=== PATIENT | female | born 1995 | race Caucasian/White ===

== ENCOUNTER → 2024-09-18 09:36 | Outpatient (BNVA) | payer OTHER, SELFPAY | PROVIDERS: PCP Family Medicine; Visit Provider Nurse Practitioner Family ==

== ENCOUNTER 2025-03-08 07:55 | Outpatient (AMB) | payer OTHER, SELFPAY ==
[2025-03-08 07:58] VITALS: BP 158/96; PULSE 88; O2SAT 98; BMI 34.4
--- NOTE | 2025-03-08 07:58 | MHC.OFFVIS ---
Vital Signs 03/08/25 07:58 Height 5 ft 9 in Weight 233 lb 0.458 oz BMI 34.4 BP 158/96 H Blood Pressure Location Lt brachial Position Sitting Pulse 88 Pulse Source Pulse Oximeter Pulse Oximetry (%) 98 Oxygen Delivery Method Room Air Intake Visit Reasons: DM Intake Note: Patient present today for Type 2 Diabetes Mellitus Last Diabetic eye exam: 04/2025 Last Podiatry Visit: Doesn't have one Random Glucose: 204 mg/dl HgA1C: 10.0% Distance Education Coordinator Required: No Accompanied by: Self / Same As Patient Allergies pine Allergy (Mild, Uncoded 03/08/25 08:03) Itching Medication List - Last Reconciled 03/08/25 by Rena Green PA-C blood sugar diagnostic ([employer] Ultra Test strips) To Test Blood Sugar 2 times a day, As directed, 90 days blood-glucose meter ([employer] Ultra2 Meter) To test Blood sugar As directed, 999 days blood-glucose sensor (Cardiovascular Simulation G7 Sensor device) use daily As directed to monitor blood glucose cetirizine 10 mg PO DAILY 30 days cholecalciferol (vitamin D3) 50 mcg PO DAILY fenofibrate 160 mg PO DAILY 90 days fluticasone propionate 50 mcg/actuation (Flonase Allergy Relief) 2 sprays intranasal DAILY glipizide ER 2.5 mg PO DAILY 30 days insulin glargine (Lantus Solostar U-100 Insulin) 14 units (0.14 mL) subcut DAILY 30 days inulin (Fiber Gummies) grams PO lancets (MobileVedaTouch Delica Plus Lancet) To Test Blood Sugar 2 times a day, As directed. 90 days metformin 500 mg PO BIDWMEAL 90 days pen needle, diabetic (BD Luz 2nd Gen Pen Needle) Treat blood sugar once a day As directed, 90 days PNV,calcium 03-[id number]-[id number] acid 27 mg iron- 1 mg ( Vitamins Plus Low Iron) 1 tab PO DAILY HPI HPI DM: Details: Patient is a 30-year-old female who presents today for a consultation regarding diabetes. Endo: DM- She states that she was just recently diagnosed (2023) with an A1c of 11.5. Today her A1c is 10. She currently on metformin 500 mg twice a day, Lantus 14 units daily, glipizide 2.5 mg daily. CGM-declines, does not like them Hypoglycemia: Rare hypergylcemia: Denies any symptoms with hyperglycemia Fam hx of type 2 dm- everyone on mothers side and some on fathers. CV: Blood pressure today in the office is 136/86. She is not on any antihypertensives. Her triglycerides are elevated and she is on fenofibrate. 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 [facility] Medical History (Updated 12/11/24 @ 14:19 by Sonali Spaulding) Anxiety Swelling, lymph nodes Insect bite of right upper arm with infection Surgical History [place] teeth extracted Hx of tonsillectomy Family History Mother Diabetes Hypothyroid Father Asthma High blood pressure Cardiovascular disease Maternal Grandmother Diabetes Paternal Grandmother High blood pressure Breast cancer Brother High blood pressure Social History Household Members: Spouse Both parents involved: Yes Caregiver staying overnight: No Housing: Apartment Are you a primary acute care certified nursing assistant to a significant other at home: No Do you presently have visiting nurse or other home services: No 75 years or older and lives alone: No Alcohol intake: current Alcohol intake frequency: holidays/special occasions only Comment: on occasion Patient Tobacco Use Status: Never used Tobacco e-Cigarette/Vaping Use: Never Used service: No Current occupational status: employed 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 Cognitive needs: No Hearing needs: No Vision needs: Yes (Patient wears glasses.) Female Reproductive History Menstrual Age of Menarche: 13 Physical Exam Vital Signs: Last Vital Signs Pulse 88 03/08/25 07:58 BP 158/96 H 03/08/25 07:58 Pulse Ox 98 03/08/25 07:58 Oxygen Delivery Method Room Air 03/08/25 07:58 BMI result Body Mass Index 34.4 Const Orientation/consciousness: patient oriented x3 HEENT Ears: hearing grossly normal bilaterally Neck Thyroid: Thyroid normal Lymphatic: no lymphadenopathy noted Resp Auscultation: clear to auscultation bilaterally Cardio Rate: regular rate Rhythm: regular rhythm Heart sounds: S1 normal heart sound present and S2 normal heart sound present Skin General skin exam: no rashes or lesions noted Neuro General: patient oriented x3, gait normal and no focal motor deficits Results AMB Hemoglobin A1c AMB Hemoglobin A1c 10.0 % Last Edit by TAVIA Son on 03/08/25 08:21 Results Reviewed Results Reviewed: Laboratory Last Values Glucose (Clinic) 204 mg/dL (60-115) H 03/08/25 08:06 Assessment & Plan Assessment & Plan (1) Uncontrolled diabetes mellitus with hyperglycemia, with long-term current use of insulin: Code(s): E11.65 - Type 2 diabetes mellitus with hyperglycemia; Z79.4 - [facility] (current) use of insulin Category: Medical Plan: Increase metformin to 1000 mg twice a day Continue glipizide 2.5 mg daily Continue Lantus 14 units daily Start Trulicity 0.75 mg weekly. Discussed risks and benefits and adverse effects of this medication including increased risk with nausea, vomiting, pancreatitis etc.. She is aware that she will have to adjust her diabetic drugs when they plan to start . She states that they will not consider it until her A1c is less than 7. (2) Microalbuminuric diabetic nephropathy: Code(s): E11.21 - Type 2 diabetes mellitus with diabetic nephropathy Category: Medical Plan: Urine ordered. We will check labs. (3) Hypertension: Code(s): I10 - Essential (primary) hypertension Category: Medical Plan: States blood pressures have been fine at home/IVF clinic We will recheck in a few weeks. 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 Panel Fast Today E11.21 - Type 2 diabetes mellitus with diabetic nephropathy, E11.65 - Type 2 diabetes mellitus with hyperglycemia, Z79.4 - [facility] (current) use of insulin Microalbumin, Random (w Creat) Today E11.21 - Type 2 diabetes mellitus with diabetic nephropathy, E11.65 - Type 2 diabetes mellitus with hyperglycemia, Z79.4 - [facility] (current) use of insulin Medications: New metformin 1,000 mg PO BID 180 tabs 1RF dulaglutide (Trulicity) 0.75 mg (0.5 mL) subcut QWEEK 2 mL 3RF Changed From glipizide ER 2.5 mg PO DAILY 30 days 30 tabs 2RF To glipizide ER 2.5 mg PO DAILY 90 days 90 tabs 2RF Discontinued metformin Discontinued Reason: Doctor's Order 500 mg PO BIDWMEAL 90 days 180 tabs 2RF Coding Level of Care Code Est Pt Level 4 (05761) Complex EM visit Add On G2211 Diagnoses Uncontrolled diabetes mellitus with hyperglycemia, with long-term current use of insulin E11.65; Z79.4 Microalbuminuric diabetic nephropathy E11.21 Hypertension I10
[2025-03-08 08:10] LABS: Glucose, Whole Blood 204 mg/dL (60-115)
== END 2025-03-08 08:28 | disposition home or self-care (01) ==
LOC: HO.ENCR 07:56
PROVIDERS: PCP Family Medicine; Visit Provider Physician Assistant
DX: E11.65 Type 2 diabetes mellitus with hyperglycemia (principal); Z79.4 Long term (current) use of insulin; E11.21 Type 2 diabetes mellitus with diabetic nephropathy; I10 Essential (primary) hypertension

== ENCOUNTER → 2025-03-08 07:55 | Outpatient (BNVA) | payer OTHER, SELFPAY | PROVIDERS: PCP Family Medicine; Visit Provider Physician Assistant | DX: E11.65 Type 2 diabetes mellitus with hyperglycemia (principal); E11.21 Type 2 diabetes mellitus with diabetic nephropathy; I10 Essential (primary) hypertension; Z79.4 Long term (current) use of insulin | CPT/HCPCS: 82947; 83036 ==

== ENCOUNTER → 2025-05-03 08:14 | Outpatient (BNVA) | payer OTHER, SELFPAY | PROVIDERS: PCP Family Medicine; Visit Provider Nurse Practitioner Family | DX: E11.65 Type 2 diabetes mellitus with hyperglycemia (principal); I10 Essential (primary) hypertension; E78.5 Hyperlipidemia, unspecified; Z79.4 Long term (current) use of insulin | CPT/HCPCS: 82947 ==

== ENCOUNTER 2025-05-03 08:27 | Outpatient (AMB) | payer OTHER, SELFPAY ==
[2025-05-03 08:29] VITALS: BP 158/90; PULSE 99; O2SAT 98; BMI 35.1
--- NOTE | 2025-05-03 08:29 | A.OFFVIS_ITS ---
Vital Signs 05/03/25 08:29 Height 5 ft 9 in Weight 237 lb 7.005 oz BMI 35.1 BP 158/90 H Blood Pressure Location Lt brachial Position Sitting Pulse 99 Pulse Source Pulse Oximeter Pulse Oximetry (%) 98 Oxygen Delivery Method Room Air Intake Visit Reasons: DM Intake Note: Patient present today for Type 2 Diabetes Mellitus Last Diabetic eye exam: Last exam was 05/2024 and has upcoming appt next month. Last Podiatry Visit: Doesn't have one Random Glucose: 228 mg/dl HgA1C: 10.0% 03/08/25 Child Health Associate Required: No Accompanied by: Self / Same As Patient Allergies pine Allergy (Mild, Uncoded 05/03/25 08:34) Itching Medication List - Last Reconciled 05/03/25 by Rena Green PA-C blood sugar diagnostic ([employer]uch Ultra Test strips) To Test Blood Sugar 2 times a day, As directed, 90 days blood-glucose meter (PixalateTouch Ultra2 Meter) To test Blood sugar As directed, 999 days blood-glucose sensor ([employer] G7 Sensor device) use daily As directed to monitor blood glucose cetirizine 10 mg PO DAILY 30 days cholecalciferol (vitamin D3) 50 mcg PO DAILY dulaglutide (Trulicity) 0.75 mg (0.5 mL) subcut QWEEK fenofibrate 160 mg PO DAILY 90 days fluticasone propionate 50 mcg/actuation (Flonase Allergy Relief) 2 sprays intranasal DAILY insulin glargine (Lantus Solostar U-100 Insulin) 14 units (0.14 mL) subcut DAILY 30 days inulin (Fiber Gummies) grams PO lancets (PixalateTouch Delica Plus Lancet) To Test Blood Sugar 2 times a day, As directed. 90 days metformin 1,000 mg PO BID pen needle, diabetic Treat blood sugar daily As directed, 90 days PNV,calcium 14-nzlo-[id number] acid 27 mg iron- 1 mg ( Vitamins Plus Low Iron) 1 tab PO DAILY HPI HPI DM: Details: Patient is a 30-year-old female who presents today for a consultation regarding diabetes. Endo: DM- She states that she was just recently diagnosed (2023) with an A1c of 11.5. Her last a1c was 10. She currently on metformin 1000 mg twice a day, Lantus 14 units daily, and Trulicity 0.75 mg weekly States her bs is elevated today because she had pizza last night. She states most mornings her blood sugars are now like 110-120 waking up. She states it used to be 180 in AMs. She denies any adverse effects with the medications. CGM-she states that she has had issues with the Dexcom reading her numbers and connecting so she just has not worn this. She says that she would like to wear and she is waiting for a replacement to come through the mail. Hypoglycemia: Rare hypergylcemia: Denies any symptoms with hyperglycemia Fam hx of type 2 dm- everyone on mothers side and some on fathers. CV: Blood pressure today in the office is 158/90. Blood pressures have been elevated. She is not on any antihypertensives. Her triglycerides are elevated and she is on fenofibrate. Establishment Guide: Currently trying to get but ivf clinic told her she has to have a1c less than 7 prior to starting. [facility], [facility] Medical History (Updated 05/03/25 @ 08:52 by Rena Green PA-C) Anxiety Swelling, lymph nodes Insect bite of right upper arm with infection Surgical History [place] teeth extracted Hx of tonsillectomy Family History Mother Diabetes Hypothyroid Father Asthma High blood pressure Cardiovascular disease Maternal Grandmother Diabetes Paternal Grandmother High blood pressure Breast cancer Brother High blood pressure Social History Household Members: Spouse Both parents involved: Yes Caregiver staying overnight: No Housing: Apartment Are you a primary progressive care unit registered nurse to a significant other at home: No Do you presently have visiting nurse or other home services: No 75 years or older and lives alone: No Alcohol intake: current Alcohol intake frequency: holidays/special occasions only Comment: on occasion Patient Tobacco Use Status: Never used Tobacco e-Cigarette/Vaping Use: Never Used service: No Current occupational status: employed 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 Cognitive needs: No Hearing needs: No Vision needs: Yes (Patient wears glasses.) Female Reproductive History Menstrual Age of Menarche: 13 Physical Exam Vital Signs: Last Vital Signs Pulse 99 05/03/25 08:29 BP 158/90 H 05/03/25 08:29 Pulse Ox 98 05/03/25 08:29 Oxygen Delivery Method Room Air 05/03/25 08:29 BMI result Body Mass Index 35.1 Const Orientation/consciousness: patient oriented x3 HEENT Ears: hearing grossly normal bilaterally Neck Thyroid: Thyroid normal Lymphatic: no lymphadenopathy noted Resp Auscultation: clear to auscultation bilaterally Cardio Rate: regular rate Rhythm: regular rhythm Heart sounds: S1 normal heart sound present and S2 normal heart sound present GI Inspection: Yes normal to inspection Palpation (GI): Soft to palpation and Other GI palpation findings present (nontender, no cva tenderness) Auscultation: normoactive bowel sounds Rectal Exam - Female: deferred Skin General skin exam: no rashes or lesions noted Neuro General: patient oriented x3, gait normal and no focal motor deficits Results Reviewed Results Reviewed: Laboratory Tests 07/03/24 03/08/25 Unknown 08:09 Creatinine 0.63 Estimated GFR > 60 Fasting Glucose 144 H Hgb A1c (Clinic) 10.0 H AST 18 ALT 31 Alkaline Phosphatase 56 Triglycerides 251 H Cholesterol 224 H LDL Cholesterol, Calc 141 H HDL Cholesterol 33 L Assessment & Plan Assessment & Plan (1) Uncontrolled diabetes mellitus with hyperglycemia, with long-term current use of insulin: Code(s): E11.65 - Type 2 diabetes mellitus with hyperglycemia; 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 She will let me know if she develops any side effects. Continue metformin and Lantus dosing Dexcom sensor provided today in the office Labs ordered. Advised to complete them prior to our appointment in 4-6 weeks. We will follow up sooner if anything changes (2) Hypertension: Code(s): I10 - Essential (primary) hypertension Category: Medical Plan: I will start her on lisinopril. Discussed risks and benefits and adverse effects of this medication. (3) Hyperlipidemia: Code(s): E78.5 - Hyperlipidemia, unspecified Category: Medical Plan: She is on a fenofibrate. I have ordered a lipid panel. Orders: Orders Hemoglobin A1c Today R73.01 - Impaired fasting glucose Medications: New dulaglutide (Trulicity) 1.5 mg (0.5 mL) subcut QWEEK 2 mL 3RF lisinopril 10 mg PO DAILY 90 tabs 0RF Discontinued dulaglutide (Trulicity) Discontinued Reason: Doctor's Order 0.75 mg (0.5 mL) subcut QWEEK 2 mL 3RF Coding Level of Care Code Est Pt Level 4 (21932) Complex EM visit Add On G2211 Diagnoses Uncontrolled diabetes mellitus with hyperglycemia, with long-term current use of insulin E11.65; Z79.4 Hypertension I10 Hyperlipidemia E78.5
[2025-05-03 08:40] LABS: Glucose, Whole Blood 228 mg/dL (60-115)
== END 2025-05-03 08:51 | disposition home or self-care (01) ==
LOC: HO.ENCR 08:28
PROVIDERS: PCP Family Medicine; Visit Provider Physician Assistant
DX: E11.65 Type 2 diabetes mellitus with hyperglycemia (principal); Z79.4 Long term (current) use of insulin; I10 Essential (primary) hypertension; E78.5 Hyperlipidemia, unspecified

== ENCOUNTER 2025-05-07 15:40 | Outpatient (AMB) | payer OTHER, SELFPAY ==
--- NOTE | 2025-05-07 15:47 | MHC.PC.OV ---
Vital Signs 05/07/25 15:52 Height 5 ft 9 in Weight 231 lb BMI 34.1 BP 125/88 Blood Pressure Location Rt brachial Position Sitting Respiration 16 Pulse 98 Pulse Source Pulse Oximeter Temp 97.9 F Temp Source Temporal Artery Scan Pulse Oximetry (%) 98 Oxygen Delivery Method Room Air Intake Visit Reasons: Physical / Dr. Tian's Pt. Intake Note: Asia presents in the office today for her annual physical. Allergies pine Allergy (Mild, Uncoded 05/07/25 15:50) Itching Medication List - Last Reconciled 05/07/25 by Austen Tian MD blood sugar diagnostic ([facility] Ultra Test strips) To Test Blood Sugar 2 times a day, As directed, 90 days blood-glucose meter ([facility] Ultra2 Meter) To test Blood sugar As directed, 999 days blood-glucose sensor ([employer] G7 Sensor device) use daily As directed to monitor blood glucose cetirizine 10 mg PO DAILY 30 days cholecalciferol (vitamin D3) 50 mcg PO DAILY dulaglutide (Trulicity) 1.5 mg (0.5 mL) subcut QWEEK fenofibrate 160 mg PO DAILY 90 days fluticasone propionate 50 mcg/actuation (Flonase Allergy Relief) 2 sprays intranasal DAILY insulin glargine (Lantus Solostar U-100 Insulin) 14 units (0.14 mL) subcut DAILY 30 days inulin (Fiber Gummies) grams PO lancets ([employer] Delica Plus Lancet) To Test Blood Sugar 2 times a day, As directed. 90 days lisinopril 10 mg PO DAILY metformin 1,000 mg PO BID pen needle, diabetic Treat blood sugar daily As directed, 90 days PNV,calcium [id number] acid 27 mg iron- 1 mg ( Vitamins Plus Low Iron) 1 tab PO DAILY Tobacco use date assessed: 05/07/25 Dental Screening Dental Screen Date: 05/07/25 Did you have a dental visit in the last 12 months?: Yes Did you have a dental problem in the last 6 months where you did not have access to dental care?: No Was dental information given to patient?: Patient has dentist HPI Physical / Dr. Tian's Pt. HPI Details 30 y/o female presents for a CPE with f/u labs and health maint. No recent CPE-labs to review. A1c today 05/07/25 7.7%, which improved from 10.0% in February. [facility] Medical History (Updated 05/07/25 @ 16:48 by Maico Goetz) Anxiety Swelling, lymph nodes Insect bite of right upper arm with infection Surgical History Daphne teeth extracted Hx of tonsillectomy Family History Mother Diabetes Hypothyroid Father Asthma High blood pressure Cardiovascular disease Maternal Grandmother Diabetes Paternal Grandmother High blood pressure Breast cancer Brother High blood pressure Social History (Updated 05/07/25 @ 15:52 by Agustina Hutchins MA) Household Members: Spouse Both parents involved: Yes Caregiver staying overnight: No Housing: Apartment Are you a primary manager long term care to a significant other at home: No Do you presently have visiting nurse or other home services: No 75 years or older and lives alone: No Alcohol intake: current Alcohol intake frequency: holidays/special occasions only Comment: on occasion Patient Tobacco Use Status: Never used Tobacco e-Cigarette/Vaping Use: Never Used service: No Current occupational status: employed 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 1. Little interest or pleasure in doing things: several days 2. Feeling down, depressed, or hopeless: not at all 3. Trouble falling or staying asleep, or sleeping too much: not at all 4. Feeling tired or having little energy: not at all 5. Poor appetite or overeating: several days 6. Feeling bad about yourself - or that you are a failure or have let yourself or your family down: not at all 7. Trouble concentrating on things, such as reading the newspaper or watching television: not at all 8. Moving or speaking so slowly that other people could have noticed. Or the opposite - being so fidgety or restless that you have been moving around a lot more than usual: not at all 9. Thoughts that you would be better off or of hurting yourself in some way: not at all Total score: 2 Depression Screening Interpretation: Negative Depression Screening Done: Yes 74885 - PHQ-9 Billing: Yes Source: Developed by Drs. Danial Brooks, Faith Klein, Ramesh Pardo and colleagues, with an educational madisyn from [employer]. Thrive Questionnaire Date Thrive assessed: 05/07/25 I am a: Patient What is your living situation today?: I have a steady place to live Within the past 12 months, did the food you bought not last and you didn't have the money to get more?: Never true Within the past 12 months, did you worry whether your food would run out before you got money to buy more?: Never true Do you have trouble paying for medicines?: No Do you have trouble getting transportation to medical appointments?: No Do you have trouble paying your heating and electricity bill?: No Do you have trouble taking care of your child, family member or friend?: No Do you have trouble with day-to-day activities such as bathing, preparing meals, shopping, managing finances, etc.?: Yes Are you currently unemployed and looking for a job?: No Are you interested in more education?: No Please select the resources that you would like help with: None Currently or been in a relationship where the following occur: No concerns reported THRIVE Score: 0 AUDIT C Alcohol Use Questionnaire (AUDIT-C) 1. How often do you have a drink containing alcohol?: 2-4 times a month 2. How many drinks containing alcohol do you have on a typical day when you are drinking?: 1 or 2 3. How often do you have six or more drinks on one occasion?: Never Total Score: 2 HANSEL-7 AMB Questionnaire HANSEL-7 Date HANSEL - 7 assessed: 05/07/25 Feeling nervous, anxious, or on edge: 1 = Several days Not being able to stop or control worryin = Several days Worrying too much about different things: 1 = Several days Trouble relaxin = Several days Being so restless that it is hard to sit still: 0 = Not at all Becoming easily annoyed or irritable: 0 = Not at all Feeling afraid as if something awful might happen: 0 = Not at all Total HANSEL-7 score (0-4 normal; 5-9 mild; 10-14 moderate; 15-21 severe): 4 Source: Developed by Drs. Danial Brooks, Faith Klein, Ramesh Pardo and colleagues, with an educational madisyn from [employer]. HANSEL-7 Assessment Billing HANSEL-7 Assessment Tool: HANSEL-7 Assessment 78994 Review of Systems Const Denies chills, Denies fatigue, Denies fever(s), Denies headache(s) and Denies weakness Eyes Denies change in vision ENT Denies dizziness, Denies headache(s), Denies hearing loss, Denies nasal congestion, Denies sinus pain, Denies sinus pressure and Denies sore throat Card Denies chest pain, Denies lightheadedness, Denies dyspnea and Denies other (palpitations) Resp Denies cough, Denies dyspnea and Denies wheezing GI Denies abdominal pain, Denies melena, Denies hematochezia, Denies change in bowel habits, Denies dyspepsia and Denies nausea Denies hematuria and Denies dysuria Musc Denies abnormal gait, Denies myalgias, Denies arthralgias, Denies numbness and Denies tingling Skin/Breast Denies rash, Denies unusual bruising and Denies wounds Neuro Denies abnormal gait, Denies dizziness, Denies headache(s), Denies memory loss, Denies numbness, Denies Sensory deficit (Neuro), Denies tingling and Denies weakness Psych Denies anxiety, Denies depression and Denies memory loss Endo Denies cold intolerance, Denies fatigue, Denies heat intolerance, Denies polydipsia and Denies polyuria Misael/Lymph Denies easy bleeding and Denies easy bruising Aller/Immun Denies wheezing Physical exam (Primary Care) Vital Signs: Last Vital Signs Temp 97.9 F 05/07/25 15:52 Pulse 98 05/07/25 15:52 Resp 16 05/07/25 15:52 BP 125/88 05/07/25 15:52 Pulse Ox 98 05/07/25 15:52 Oxygen Delivery Method Room Air 05/07/25 15:52 BMI result Body Mass Index 34.1 Tobacco/Smoking Status: Tobacco use Status Tobacco use date assessed 05/07/25 05/07/25 15:51 Patient Tobacco Use Status Never used Tobacco 05/07/25 15:52 e-Cigarette/Vaping Use Never Used 05/07/25 15:52 PHQ-9: PHQ-9 Score PHQ-9: Total score 2 05/07/25 16:33 Depression Screening Interpretation: Negative Thrive Assessment: Date of Thrive Assessment Date Thrive assessed 05/07/25 05/07/25 15:49 Currently or been in a relationship where the following occur: No concerns reported Const General: no acute distress, well developed, alert and awake Nutritional Appearance: well nourished Orientation/consciousness: patient oriented x3 HENMT Head: Yes normocephalic and Yes atraumatic Ears: hearing grossly normal bilaterally and TM's normal bilaterally General nose exam: Normal external nose present and Normal nares present Mouth: Normal oral and palatal mucosa present and moist mucous membranes Teeth and gingiva: dentition normal Throat: Yes posterior oropharynx normal Eyes General: appearance normal, both eyes and all related structures Pupils: Equal, round and reactive pupils present and Pupil accommodation reflex normal EOM: EOMs intact bilaterally Neck Neck: Yes normal visual inspection, Yes no lymphadenopathy and Yes trachea midline Thyroid: Thyroid normal Carotids: no bruits Lymphatic: no lymphadenopathy noted Chest Chest palpation & inspection: normal inspection of the chest Resp Effort & Inspection: normal respiratory effort Auscultation: clear to auscultation bilaterally Cardio Rate: regular rate Rhythm: regular rhythm Heart sounds: S1 normal heart sound present, S2 normal heart sound present, no gallops, no murmurs and no rubs Bruits: no abdominal aortic bruits and no carotid bruits GI Palpation (GI): No Abdominal aortic bruit present, Soft to palpation, nontender, No hepatosplenomegaly present and No Rebound tenderness present Auscultation: normal bowel sounds General: Yes no CVA tenderness Back/Spine/Pelvis Back: no CVA tenderness Cervical Spine: cervical ROM normal and No Cervical spine tenderness Thoracic/Lumbar Spine: thoraco-lumbar ROM normal, No pain with thoraco-lumbar ROM, No thoracic spinal tenderness and No lumbar spinal tenderness Skin Lesions: no lesions Rashes: no rashes Trauma: no lacerations or abrasions Wounds: no wounds Nails: normal Neuro General: patient oriented x3 Cranial nerves: Yes Equal, round and reactive pupils present Cognition (Neuro): normal cognition Gait exam (Neuro): Normal gait present Motor exam (neuro): 5/5 motor strength present throughout Sensory Exam: No Sensory deficit (Neuro) Deep tendon reflexes (DTR's): Right patellar reflex intensity grade: 2+ and Left patellar reflex intensity grade: 2+ Extrem General: Yes normal to inspection and No edema Psych Appearance: grossly normal Affect: normal affect Attitude: cooperative Thought process: Normal thought process present Results AMB Hemoglobin A1c AMB Hemoglobin A1c 7.7 % Last Edit by Agustina Hutchins MA on 05/07/25 16:06 Results Reviewed Results Reviewed: Laboratory Last Values Hgb A1c (Clinic) 7.7 % (4.0-6.0) H 05/07/25 15:59 Coding Level of Care Code Est Pt Level 3 (01834) Est Pt Prev Care 18-39y(41212) Diagnoses Adult general medical exam Z00.00 Uncontrolled diabetes mellitus with hyperglycemia, with long-term current use of insulin E11.65; Z79.4 Hypertension I10 Hyperlipidemia E78.5 Screening for cervical cancer Z12.4 Allergic reaction T78.40XA Additional Codes HANSEL-7 Assessment Billing - HANSEL-7 Assessment Tool: HANSEL-7 Assessment 45018 ([id number]) PHQ-9 - 76906 - PHQ-9 Billing: Yes ([id number]) Assessment & Plan Assessment & Plan (1) Adult general medical exam: Code(s): Z00.00 - Encounter for general adult medical examination without abnormal findings Category: Medical Plan: 30-year-old female presents for complete physical exam Encouraged healthy diet with active lifestyle and plenty of exercise (2) Uncontrolled diabetes mellitus with hyperglycemia, with long-term current use of insulin: Code(s): E11.65 - Type 2 diabetes mellitus with hyperglycemia; 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 Improving. Goal is less than 7.0% Followed by endocrinology and her Trulicity has been increase though she has not started the higher dose yet. A1c is likely to continue to improve. No further medication changes were made by me today. Continue current medication regimen and increased Trulicity when you get your higher dose. Continue diabetic diet and exercise (3) Hypertension: Code(s): I10 - Essential (primary) hypertension Category: Medical Plan: Blood pressure now controlled with lisinopril. Goal is less than 140/90 Continue lisinopril 10 mg daily (4) Hyperlipidemia: Code(s): E78.5 - Hyperlipidemia, unspecified Category: Medical Plan: LDL cholesterol has been elevated in the past. 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 This was reproducible with eating cashews Referred her to immunology If she has any similar symptoms she will take Benadryl 25 mg tablets - 2 tablets at once. If she has any difficulty with swallowing breathing she go to the emergency department. 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
[2025-05-07 15:52] VITALS: BP 125/88; PULSE 98; RESP 16; TEMP 36.6; O2SAT 98; BMI 34.1
== END 2025-05-07 16:49 | disposition home or self-care (01) ==
LOC: HO.HMCFM 15:40
PROVIDERS: PCP Family Medicine; Visit Provider Family Medicine
DX: Z00.00 Encounter for general adult medical examination without abnormal findings (principal); E11.65 Type 2 diabetes mellitus with hyperglycemia; Z79.4 Long term (current) use of insulin; I10 Essential (primary) hypertension; E78.5 Hyperlipidemia, unspecified; T78.40XA Allergy, unspecified, initial encounter

== ENCOUNTER → 2025-05-07 15:40 | Outpatient (BNVA) | payer OTHER, SELFPAY | PROVIDERS: PCP Family Medicine; Visit Provider Family Medicine | DX: Z00.00 Encounter for general adult medical examination without abnormal findings (principal); E11.65 Type 2 diabetes mellitus with hyperglycemia; I10 Essential (primary) hypertension; E78.5 Hyperlipidemia, unspecified; Z91.09 Other allergy status, other than to drugs and biological substances; Z79.4 Long term (current) use of insulin | CPT/HCPCS: 83036; 96127 ==

== ENCOUNTER 2025-05-31 06:10 | Outpatient (REF) | payer OTHER, SELFPAY ==
[2025-05-31 07:52] LABS: Appearance Urine Clear; Glucose Urine UA Negative (Negative); PH 5.5 (5.0-9.0); Specific Gravity - Urine 1.025 (1.005-1.025)
[2025-05-31 07:54] LABS: Hemoglobin A1C 223.0172 umol/L; Total Hemoglobin (HGBA1C) 3753.8994 umol/L
[2025-05-31 08:09] LABS: Alanine Aminotransferase 51 U/L (0-31); Albumin Level 4.8 g/dL (3.5-5.0); Alkaline Phosphatase 68 U/L (39-117); Anion Gap 13 (12-20); Aspartate Amino Transferase 30 U/L (5-31); Blood Urea Nitrogen 17 mg/dL (9-16); Calcium 9.5 mg/dL (8.4-10.2); Carbon Dioxide 25 mmol/L (22-29); Chloride 105 mmol/L (96-108); Cholesterol 246 mg/dL (<200); Estimated Glomerular Filt Rate > 60; HDL Cholesterol 28 mg/dL (>40); Potassium 4.0 mmol/L (3.3-5.1); Sodium 139 mmol/L (135-145); Total Protein 7.5 g/dL (6.5-8.0); Triglycerides 460 mg/dL (<150)
[2025-05-31 08:37] LABS: Microalbum/Creatinine Ratio Ur 15.3 ug/mg cr (<30)
== END 2025-05-31 06:11 | disposition home or self-care (01) ==
LOC: HO.LAB 06:10
PROVIDERS: Physician Assistant; PCP Family Medicine; Visit Provider Family Medicine
DX: E11.65 Type 2 diabetes mellitus with hyperglycemia (principal); I10 Essential (primary) hypertension; E78.5 Hyperlipidemia, unspecified; Z79.4 Long term (current) use of insulin
CPT/HCPCS: 36415; 80053; 80061; 81003; 82043; 82570; 82947; 83036

== ENCOUNTER 2025-05-31 15:11 | Outpatient (AMB) | payer OTHER, SELFPAY ==
[2025-05-31 15:13] VITALS: BP 112/78; PULSE 101; O2SAT 99; BMI 33.9
--- NOTE | 2025-05-31 15:13 | A.OFFVIS_ITS ---
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 Accompanied by: Self / Same As Patient Allergies pine Allergy (Mild, Uncoded 05/07/25 15:50) Itching Medication List - Last Reconciled 05/31/25 by Rena Green PA-C atorvastatin (Lipitor) 10 mg PO BEDTIME blood sugar diagnostic ([employer] Ultra Test strips) To Test Blood Sugar 2 times a day, As directed, 90 days blood-glucose meter ([employer] Ultra2 Meter) To test Blood sugar As directed, 999 days blood-glucose sensor ([employer] G7 Sensor device) use daily As directed to monitor blood glucose cetirizine 10 mg PO DAILY 30 days cholecalciferol (vitamin D3) 50 mcg PO DAILY dulaglutide (Trulicity) 1.5 mg (0.5 mL) subcut QWEEK fenofibrate 160 mg PO DAILY 90 days fluticasone propionate 50 mcg/actuation (Flonase Allergy Relief) 2 sprays intranasal DAILY insulin glargine (Lantus Solostar U-100 Insulin) 14 units (0.14 mL) subcut DAILY 30 days inulin (Fiber Gummies) grams PO lancets ([employer] Delica Plus Lancet) To Test Blood Sugar 2 times a day, As directed. 90 days lisinopril 10 mg PO DAILY metformin 1,000 mg PO BID pen needle, diabetic Treat blood sugar daily As directed, 90 days PNV,calcium 11-ymeo-eccns acid 27 mg iron- 1 mg ( Vitamins Plus Low Iron) 1 tab PO DAILY HPI HPI DMT2 Follow-Up: Details: Patient is a 30-year-old female who presents today for a consultation regarding diabetes. Endo: DM- She states that she was diagnosed 2023 with an A1c of 11.5. Her A1c today is 7.6. She currently on metformin 1000 mg twice a day, Lantus 14 units daily, and Trulicity 1.5 mg weekly -She states tuesday is starting the higher dose CGM-does not wear them due to them falling off a lot Hypoglycemia: Rare hypergylcemia: Denies any symptoms with hyperglycemia Fam hx of type 2 dm- everyone on mothers side and some on fathers. CV: Blood pressure today in the office is 112/78. Blood pressures have been elevated. Was started at our last visit on lisinopril 10 mg. Her triglycerides are elevated and she is on fenofibrate. Epidemiology Intern: Currently trying to get but ivf clinic told her she has to have a1c less than 7 prior to starting. [facility] Medical History (Updated 05/07/25 @ 16:48 by Maico Goetz) Anxiety Swelling, lymph nodes Insect bite of right upper arm with infection Surgical History [place] teeth extracted Hx of tonsillectomy Family History Mother Diabetes Hypothyroid Father Asthma High blood pressure Cardiovascular disease Maternal Grandmother Diabetes Paternal Grandmother High blood pressure Breast cancer Brother High blood pressure Social History (Updated 05/07/25 @ 15:52 by Agustina Hutchins MA) Household Members: Spouse Both parents involved: Yes Caregiver staying overnight: No Housing: Apartment Are you a primary care process manager to a significant other at home: No Do you presently have visiting nurse or other home services: No 75 years or older and lives alone: No Alcohol intake: current Alcohol intake frequency: holidays/special occasions only Comment: on occasion Patient Tobacco Use Status: Never used Tobacco e-Cigarette/Vaping Use: Never Used service: No Current occupational status: employed 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 Cognitive needs: No Hearing needs: No Vision needs: Yes (Patient wears glasses.) Female Reproductive History Menstrual Age of Menarche: 13 Physical Exam Vital Signs: Last Vital Signs Pulse 101 H 05/31/25 15:13 BP 112/78 05/31/25 15:13 Pulse Ox 99 05/31/25 15:13 Oxygen Delivery Method Room Air 05/31/25 15:13 BMI result Body Mass Index 33.9 Const Orientation/consciousness: patient oriented x3 HEENT Ears: hearing grossly normal bilaterally Neck Thyroid: Thyroid normal Lymphatic: no lymphadenopathy noted Resp Auscultation: clear to auscultation bilaterally Cardio Rate: regular rate Rhythm: regular rhythm Heart sounds: S1 normal heart sound present and S2 normal heart sound present Skin General skin exam: no rashes or lesions noted Neuro General: patient oriented x3, gait normal and no focal motor deficits Results Reviewed Results Reviewed: Laboratory Tests 05/31/25 06:42 Creatinine 0.56 Estimated GFR > 60 Fasting Glucose 200 H Hemoglobin A1c % 7.6 H Assessment & Plan Assessment & Plan (1) Uncontrolled diabetes mellitus with hyperglycemia, with long-term current use of insulin: Code(s): E11.65 - Type 2 diabetes mellitus with hyperglycemia; Z79.4 - longterm (current) use of insulin Category: Medical Plan: increase trulicity to 1.5 mg weekly continue treatment plan otherwise (2) Hypertension: Code(s): I10 - Essential (primary) hypertension Category: Medical Plan: wnl continue current plan (3) Hyperlipidemia: Code(s): E78.5 - Hyperlipidemia, unspecified Category: Medical Plan: add atorvastatin continue fenofibrate We will plan to recheck labs in a couple of months. We did discuss risks and benefits and adverse effects of this medication. 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
[2025-05-31 15:29] LABS: Glucose, Whole Blood 124 mg/dL (60-115)
== END 2025-05-31 15:38 | disposition home or self-care (01) ==
LOC: HO.ENCR 15:12
PROVIDERS: PCP Family Medicine; Visit Provider Physician Assistant
DX: E11.65 Type 2 diabetes mellitus with hyperglycemia (principal); Z79.4 Long term (current) use of insulin; I10 Essential (primary) hypertension; E78.5 Hyperlipidemia, unspecified